=== PATIENT | male | born 1965 | race Caucasian/White ===

== ENCOUNTER 2021-09-28 04:51 | Observation (INO) ==
[2021-09-28] MEDS ORDERED: Aspirin 325 MG TABLET PO ONE (05:12)
[2021-09-28] MEDS ORDERED: Nitroglycerin 0.4 MG TAB.SUBL SL PRN ×2 (05:12→07:34)
[2021-09-28 05:28] LABS: Basophils % 0.4 %; Eosinophils # 0.2 K/mcL (0.0-0.6); Eosinophils % 2.9 %; Hematocrit 33.9 % (37.5-50.1); Hemoglobin 10.5 g/dL (12.9-16.9); Immature Granulocytes % 0.8 % (0-4); Lymphocytes # 3.8 K/mcL (0.6-4.6); Lymphocytes % 51.1 %; Mean Corpuscular Hemoglobin 27.6 pg (28.0-33.3); Mean Corpuscular Volume 89.2 fL (83.0-100.0); Mean Platelet Volume 8.6 fL (9.4-12.4); Monocytes # 0.9 K/mcL (0.0-1.3); Monocytes % 11.9 %; Neutrophils # 2.5 K/mcL (1.6-8.9); Platelet Count 377 K/mcL (140-400); Red Cell Distribution Width 14.3 % (11.5-14.5); Segmented Neutrophils % 32.9 %; White Blood Count 7.5 K/mcL (4.3-11.1)
[2021-09-28 05:36] LABS: INR 0.9; Prothrombin Time 10.3 Seconds (9.4-12.1)
[2021-09-28 05:38] LABS: Activated Partial Thrombo Time 35.7 Seconds (26.0-36.0)
[2021-09-28 05:47] LABS: BUN/Creatinine Ratio 11 (6-26); Blood Urea Nitrogen 8 mg/dL (6-20); Calcium 9.4 mg/dL (8.6-10.3); Carbon Dioxide 35 mEq/L (23-29); Chloride 98 mEq/L (98-107); Glucose 96 mg/dL (70-105); Osmolality,Calculated 288 (280-300); Potassium 3.9 mEq/L (3.5-5.1); Sodium 140 mEq/L (136-145); eGFR For African Americans > 60 (> 60); eGFR For Non-African Americans > 60 (> 60)
[2021-09-28 05:48] LABS: Troponin I < 0.03 ng/mL (< 0.04)
[2021-09-28 06:22] LABS: Influenza A PCR Negative (Negative); Influenza B PCR Negative (Negative); Resp. Syncytial Virus PCR Negative (Negative)
[2021-09-28 06:29] LABS: SARS-CoV-2 by PCR (In House) Negative (Negative)
[2021-09-28] MEDS ORDERED: Ondansetron 4 MG/2 ML VIAL IVP PRN (07:31)
[2021-09-28] MEDS ORDERED: Naloxone 0.4 MG/ML INJ IVP PRN (07:31)
[2021-09-28] MEDS ORDERED: Perflutren Lipid Microsphere 1.3 ML in 0.9 % Sodium Chloride 8.7 ML IVP PRN (07:33)
[2021-09-28] MEDS ORDERED: Ipratropium/Albuterol Neb 3 ML IH PRN (07:34)
[2021-09-28] MEDS ORDERED: Morphine Sulfate 2 MG/ML SYRINGE IVP PRN (08:25)
[2021-09-28] MEDS: Aspirin 81 MG TAB.CHEW PO SCH (09:15)
[2021-09-28] MEDS ORDERED: Regadenoson 0.4 MG/5 ML SYRINGE IVP ONE ×2 (10:43→12:15)
[2021-09-29] MEDS: *HR* Enoxaparin 40 MG/0.4 ML SYRINGE SQ SCH (05:07)
[2021-09-29 07:52] LABS: Basophils % 0.4 %; Eosinophils # 0.3 K/mcL (0.0-0.6); Eosinophils % 3.2 %; Hematocrit 34.6 % (37.5-50.1); Hemoglobin 10.6 g/dL (12.9-16.9); Immature Granulocytes % 0.5 % (0-4); Lymphocytes # 3.9 K/mcL (0.6-4.6); Lymphocytes % 48.9 %; Mean Corpuscular HGB Conc 30.6 g/dL (31.6-35.5); Mean Corpuscular Hemoglobin 27.4 pg (28.0-33.3); Mean Corpuscular Volume 89.4 fL (83.0-100.0); Mean Platelet Volume 8.6 fL (9.4-12.4); Monocytes # 1.1 K/mcL (0.0-1.3); Monocytes % 13.5 %; Neutrophils # 2.6 K/mcL (1.6-8.9); Platelet Count 396 K/mcL (140-400); Red Blood Count 3.87 M/mcL (4.19-5.50); Red Cell Distribution Width 14.2 % (11.5-14.5); Segmented Neutrophils % 33.5 %; White Blood Count 7.9 K/mcL (4.3-11.1)
[2021-09-29 08:03] LABS: BUN/Creatinine Ratio 12 (6-26); Blood Urea Nitrogen 10 mg/dL (6-20); Calcium 9.9 mg/dL (8.6-10.3); Carbon Dioxide 31 mEq/L (23-29); Chloride 104 mEq/L (98-107); Chol/HDL Ratio 4.1 (0-4.9); Cholesterol 230 mg/dL (< 200); Glucose 76 mg/dL (70-105); HDL Cholesterol 56 mg/dL (40-59); LDL Cholesterol,Calculated 150 mg/dL (< 100); Osmolality,Calculated 278 (280-300); Potassium 4.2 mEq/L (3.5-5.1); Sodium 135 mEq/L (136-145); Triglycerides 122 mg/dL (< 150); eGFR For African Americans > 60 (> 60); eGFR For Non-African Americans > 60 (> 60)
[2021-09-29] MEDS ORDERED: Fluticasone Propionate Nasal 50 MCG/SPRAY BOTTLE NS PRN (08:29)
[2021-09-29] MEDS ORDERED: *HR* LORazepam 1 MG TABLET PO PRN (08:29)
[2021-09-29] MEDS ORDERED: traZODone 50 MG TABLET PO PRN (08:29)
[2021-09-29] MEDS: Aspirin 81 MG TAB.CHEW PO SCH (09:07)
[2021-09-29] MEDS: lisinopriL 10 MG TABLET PO SCH (09:07)
[2021-09-29 10:13] LABS: Estimated Average Glucose 100 mg/dl; Hemoglobin A1C 5.1 %
[2021-09-29] MEDS ORDERED: 0.9 % Sodium Chloride 1,000 ML ONE (10:44)
[2021-09-29] MEDS ORDERED: Nitroglycerin 1,000 MCG/5 ML VIAL IV ONE (10:44)
[2021-09-29] MEDS ORDERED: *HR* Heparin 10,000 UNIT/10 ML VIAL ONE (10:44)
[2021-09-29] MEDS ORDERED: Heparin 1,000 UNITS/500 mL 500 ML ONE (10:44)
[2021-09-29] MEDS ORDERED: ISOVUE-370 200 ML INFUS..BTL ONE ×2 (10:44→11:52)
[2021-09-29] MEDS ORDERED: *HR* Midazolam HCl 2 MG/2 ML VIAL ONE (10:55)
[2021-09-29] MEDS ORDERED: *HR* FentaNYL (PF) 100 MCG/2 ML VIAL ONE (10:55)
[2021-09-29] MEDS ORDERED: *HR* Bivalirudin 250 MG VIAL IVC ONE (11:26)
[2021-09-29] MEDS ORDERED: *HR* Ticagrelor 90 MG TABLET ONE (11:31)
[2021-09-29] MEDS: Budesonide/Formoterol 80/4.5 1 PUFF INH IH SCH ×2 (13:43→21:31)
[2021-09-29] MEDS: Metoprolol XL (24 HR) Succ 25 MG TAB.ER.24H PO SCH (13:50)
[2021-09-29] MEDS: *HR* Ticagrelor 90 MG TABLET PO SCH (20:30)
[2021-09-30 02:38] LABS: Basophils % 0.3 %; Eosinophils # 0.2 K/mcL (0.0-0.6); Eosinophils % 2.3 %; Hematocrit 33.4 % (37.5-50.1); Hemoglobin 10.7 g/dL (12.9-16.9); Lymphocytes # 3.6 K/mcL (0.6-4.6); Lymphocytes % 39.7 %; Mean Corpuscular Hemoglobin 28.7 pg (28.0-33.3); Mean Corpuscular Volume 89.5 fL (83.0-100.0); Mean Platelet Volume 8.6 fL (9.4-12.4); Monocytes # 1.3 K/mcL (0.0-1.3); Monocytes % 14.3 %; Neutrophils # 3.9 K/mcL (1.6-8.9); Platelet Count 366 K/mcL (140-400); Red Blood Count 3.73 M/mcL (4.19-5.50); Red Cell Distribution Width 14.4 % (11.5-14.5); Segmented Neutrophils % 42.4 %; White Blood Count 9.2 K/mcL (4.3-11.1)
[2021-09-30 03:00] LABS: BUN/Creatinine Ratio 17 (6-26); Blood Urea Nitrogen 17 mg/dL (6-20); Carbon Dioxide 29 mEq/L (23-29); Chloride 101 mEq/L (98-107); Glucose 83 mg/dL (70-105); Osmolality,Calculated 287 (280-300); Sodium 138 mEq/L (136-145); eGFR For African Americans > 60 (> 60); eGFR For Non-African Americans > 60 (> 60)
[2021-09-30] MEDS: *HR* Enoxaparin 40 MG/0.4 ML SYRINGE SQ SCH (05:37)
[2021-09-30] MEDS: Budesonide/Formoterol 80/4.5 1 PUFF INH IH SCH (07:55)
[2021-09-30] MEDS: lisinopriL 10 MG TABLET PO SCH (08:22)
[2021-09-30] MEDS: Metoprolol XL (24 HR) Succ 25 MG TAB.ER.24H PO SCH (08:22)
[2021-09-30] MEDS: Aspirin 81 MG TAB.CHEW PO SCH (08:22)
[2021-09-30] MEDS: *HR* Ticagrelor 90 MG TABLET PO SCH (08:22)
[2021-09-30 10:54] VITALS: BP 136/78; PULSE 92; TEMP 97.8; O2SAT 98
== END 2021-09-30 11:13 | disposition home or self-care (01) ==
LOC: 3BNU 04:51 → EMEROOARM 04:51 → SUATTDRO 15:06 → 3BNU 16:04
PROVIDERS: ADMIT Student in an Organized Health Care Education/Training Program; ATTEND Internal Medicine